=== PATIENT | female | born 2005 | race Two or more races ===

== ENCOUNTER 2024-07-31 05:11 | Inpatient (IN) | payer MEDICAID, SELFPAY ==
[2024-07-31] VITALS (18 sets, daily range): BP systolic 118–163; BP diastolic 71–100; PULSE 56–71; RESP 14–100; TEMP 36.4–37; O2SAT 97–98; BMI 29.4
[2024-07-31] MEDS: BETAMET ACET/BETAMET NA PH (Celestone) 6 MG/ML VIAL 12 MG IM (05:32)
[2024-07-31] MEDS: Ampicillin Inj 2,000 MG in SODIUM CHLORIDE 0.9% (POP) 100 ML 200 MG IV (05:36)
[2024-07-31] MEDS: RINGERS LACTATED 1000 ML 1,000 ML 100 ML IV (05:36)
[2024-07-31 05:44] LABS: Basophils % (Auto) 0 % (0-2.5); Eosinophils # (Auto) 0.1 Thou/mm3 (0.0-0.5); Eosinophils % (Auto) 1 % (0-10); Hematocrit 36.9 % (36.0-46.0); Hemoglobin 13.2 g/dL (12.0-16.0); Immature Granulocytes % (Auto) 1 % (0-0); Immature Granulocytes Auto 0.06 Thou/mm3 (0.00-0.00); Lymphocytes % (Auto) 37 % (10-50); Mean Corpuscular HGB Conc 35.8 g/dl (31.0-37.0); Mean Corpuscular Hemoglobin 29.9 pg (25.0-35.0); Mean Corpuscular Volume 84 fL (80-100); Monocytes # (Auto) 0.4 Thou/mm3 (0.0-0.8); Monocytes % (Auto) 5 % (0-12); Neutrophils # (Auto) 4.5 Thou/mm3 (1.8-7.7); Neutrophils % (Auto) 56 % (37-80); Nucleated Red Blood Cell % 0 /100 WBC (0); Platelet Count 260 Thou/mm3 (140-440); RDW Standard Deviation 39.3 fL (36.4-46.3); Red Blood Count 4.42 Miln/mm3 (4.00-5.20); White Blood Count 8.1 Thou/mm3 (4.5-11.0)
[2024-07-31 06:18] LABS: Syphilis Nonreactive (Nonreactive)
[2024-07-31] MEDS: METHYLERGONOVINE INJ 0.2 MG/ML VIAL IM (06:21)
[2024-07-31] MEDS: OXYTOCIN in NS 20 units 20 UNIT/1,000 ML BAG 125 UNIT IV (06:21)
[2024-07-31] MEDS: BENZO/LANO/ALOE (Dermoplast) 60 GM CAN 1 SPRAY TOP (06:21)
[2024-07-31] MEDS: LIDOCAINE HCL 1% 20 ML VIAL INFL (06:22)
[2024-07-31] MEDS: MINERAL OIL 30 ML UDC TOP (06:22)
[2024-07-31] MEDS: IBUPROFEN TAB 400 MG TABLET 800 MG PO (06:23)
--- NOTE | 2024-07-31 06:39 | ESHP_ITS ---
Documentation for date of: 07/31/24 OB Labor/Induct. HPI History of Present Illness : 3 Para: 3 Term pregnancies: 2 pregnancies: 0 Living children: 2 History of Abortions: Spontaneous and Elective: 0 History of Vaginal deliveries: 2 History of sections: No History of : No DUKE: 08/16/24 Gestational Age (weeks): 34 Gestational Age (days): 6 History of present illness: Patient presents for regular, painful ctx that started around 0100 and have gotten progressively more painful. No LOF. No vaginal bleeding. Normal movement. No fevers/chills. History of Present Adequate Care: Yes Narrative: Hx of 2 prior vaginal deliveries at term No records available to review today from Dr. Avelar' office, but patient states she established care with him at 12wk and has had good care with no complications Labs Labs: Positive: Rubella Titre, Negative: RPR, Hepatitis B, HIV, Chlamydia, Gonorrhea and Group Beta Strep and Unknown: Herpes Type 1, Herpes Type 2 and Covid-19 Review of Systems Review of Systems Narrative Review of Systems: Review of Systems Systems Reviewed: All systems reviewed, normal except as documented Constitutional Constitutional: Denies body ache(s), Denies chills, Denies fever(s) and Denies headache(s) ENT Ears, Nose, Mouth, and Throat: Denies headache(s) and Denies vertigo Cardiovascular Cardiovascular: Denies chest pain, Denies palpitations, Denies dyspnea and Denies syncope Respiratory Respiratory: Denies cough, Denies dyspnea Gastrointestinal Gastrointestinal: Denies nausea and Denies vomiting Neurologic Neurologic: Denies convulsions, Denies headache(s), Denies other visual disturbances, Denies syncope and Denies vertigo Past Medical History Family History OTHER FAMILY HX: non-contributory Surgical History SURGICAL: Negative Section OTHER SURGICAL HX: denies Social History SOCIAL: , two children. No tobacco/ETOH/illicit drugs Past Medical History Comments PMH COMMENT: Benign PMHx Meds Home Medications and Allergies Allergies Allergy/AdvReac Type Severity Reaction Status Date / Time No Known Allergies Allergy Verified 09/16/23 10:19 OB Exam Physical Exam Vital signs: Temp Pulse Resp BP 98.6 F 57 L 18 131/86 H 07/31/24 05:16 07/31/24 06:25 07/31/24 05:16 07/31/24 06:25 Narrative: General: well developed, well nourished, having painful contractions Cardiac: normal heart rate Lungs: breathing without distress Abdomen: soft, gravid, non-tender, no rebound or guarding Extremities: no pain with palpation of calves Detailed Labor and Delivery Exam Dilation (cm): 6 Effacement (%): 80 Cervix position: anterior station: -2 Consistency: soft Presentation: Vertex Membranes: intact monitor accelerations: 15x15 monitor decelerations: None alf variability: Moderate (11-25) Contraction frequency (min): q3-4min OB Results Labs 07/31/24 05:25 Labs: Short CBC 07/31/24 Range/Units 05:25 WBC 8.1 (4.5-11.0) Thou/mm3 Hgb 13.2 (12.0-16.0) g/dL Hct 36.9 (36.0-46.0) % Plt Count 260 (140-440) Thou/mm3 OB Assessment & Plan Assessment and Plan (1) Active labor: Status: Acute Assessment and plan: Radha is a 19yo with SIUP at 34&6wk per patient presenting in active labor. Regular/painful contractions, SCE: 6/80/-2. Vitals wnl, benign exam. Reassuring assessment. PMhx/ complicated by: No records available to review today (other than labs from [facility]) from Dr. Avelar' office, but patient states she established care with him at 12wk and has had good care with no complications Plan: -Admit to L&D -Establish IV, routine labs -CEFM -Clear liquid diet -Hadoop Software Engineer/consent re: -GBS status: unknown. Ampicillin per protocol -Betamethasone 12mg IM x1 -Anticipate -Safe to proceed Amirah Munoz MD
--- NOTE | 2024-07-31 06:39 | OBDSUM_ITS ---
Data ([facility]) Data Hx Section: No : 3 Term: 2 : 0 Livin Abortions: Spontaneous & Theraputic: 0 Delivery Data ([facility]) Labor Data Initiation of labor: Spontaneous Induction/Augmentation Agent: None ROM date: 07/31/24 ROM time: 05:54 Amniotic membrane rupture type: Artificial Amniotic fluid description: Clear Delivery Data Onset of labor date: 07/31/24 Onset of labor time: 04:30 Complete dilation date: 07/31/24 Complete dilation time: 05:53 delivery date: 07/31/24 delivery time: 05:54 Placenta delivery date: 07/31/24 Placenta delivery time: 05:58 Stage 1 total time: Labor - Stage 1 Duration 1 hours and 23 minutes Delivered by: Amirah Munoz Delivery nurse: gagan Gonzalez nurse: Sarah Outpatient Coding Specialist at delivery: Yes (Dr. De La Garza) Delivery Method Delivery method: Normal Vaginal Delivery Presentation: Vertex Anesthesia Type Anesthesia Type: None Placenta Placenta delivery description: Spontaneous Cord blood sent to lab: Yes cord blood collection: Cord Blood Type Episiotomy Episiotomy description: None EBL Estimated blood loss (ml): 300 Umbilical Cord cord description: 3 Vessels Additional Procedures Radha is a 19yo [id number] s/p uncomplicated at 34(?)wk after presenting in active labor, delivering at 0554 on 07/31/2024. On presentation, SCE was 6cm. She progressed very rapidly to C/C/+1 at which point she began pushing. Forebag was ruptured at +2 station. With good maternal pushing efforts, 's head delivered OA and restituted RU. Left anterior shoulder delivered easily followed by posterior shoulder and corpus. had lusty spontaneous cry and was vigorous. Apgars 8/9. Dr. Rai present for delivery. placed on maternal abdomen where nose/mouth were suctioned and infant dried/stimulated. After approximately 1 minute, cord was clamped x2 and cut by me. Cord blood collected for typing. With fundal massage and cord traction, placenta delivered spontaneously and intact with 3 vessel centrally inserted cord. Bimanual massage performed and IV pitocin given per protocol with fundus then firm at u-2cm and hemostasis noted. Inspection of perineum and vagina revealed a 2nd degree midline perineal laceration which was repaired in routine fashion with 3-0 vicryl, after anesthetizing with 1% lidocaine- total reapproximation and hemostasis achieved. Continuous trickle of blood began, so sweep just within cervix/BELA performed which retrieved a small amount of clot. 0.2mg IM methergine given and bimanual massage performed with observed hemostasis after. All counts correct x2. Mom was doing well when I left the room. Infant taken to NICU for period of observation. Amirah Munoz MD Data ([facility]) Data order: 1 's gender: Male Identification band number: [id number] weight (gms): 3203.496 g Weight (pounds): 7 lbs and 1.0 ozs [place] length: 50.8 cm 1 minute: 8 5 minutes: 9
[2024-07-31 07:38] LABS: Amphetamine/Metham Scrn,Ur OB Negative (Negative); Benzoylecgonine Screen, Ur OB Negative (Negative); Opiate Screen,Urine OB Negative (Negative); THC Screen,Urine OB Negative (Negative)
[2024-07-31] MEDS: DOCUSATE SOD 100 MG CAPSULE PO ×2 (08:48→20:14)
[2024-07-31 12:49] LABS: Basophils % (Auto) 0 % (0-2.5); Eosinophils % (Auto) 0 % (0-10); Hematocrit 34.6 % (36.0-46.0); Hemoglobin 12.5 g/dL (12.0-16.0); Immature Granulocytes % (Auto) 1 % (0-0); Immature Granulocytes Auto 0.09 Thou/mm3 (0.00-0.00); Lymphocytes # (Auto) 1.5 Thou/mm3 (1.0-4.8); Lymphocytes % (Auto) 11 % (10-50); Mean Corpuscular HGB Conc 36.1 g/dl (31.0-37.0); Mean Corpuscular Hemoglobin 29.9 pg (25.0-35.0); Mean Corpuscular Volume 83 fL (80-100); Monocytes # (Auto) 0.2 Thou/mm3 (0.0-0.8); Monocytes % (Auto) 1 % (0-12); Neutrophils # (Auto) 12.6 Thou/mm3 (1.8-7.7); Neutrophils % (Auto) 87 % (37-80); Nucleated Red Blood Cell % 0 /100 WBC (0); Platelet Count 254 Thou/mm3 (140-440); RDW Standard Deviation 39.1 fL (36.4-46.3); Red Blood Count 4.18 Miln/mm3 (4.00-5.20); White Blood Count 14.4 Thou/mm3 (4.5-11.0)
[2024-08-01 04:00] VITALS: BP 112/68; PULSE 57; RESP 17; TEMP 36.4; O2SAT 97
--- NOTE | 2024-08-01 07:38 | ESDS_ITS ---
DS: Providers Provider Date of admission: 07/31/24 05:24 Primary care physician: Physician No Primary/Family Admitting Provider: Amirah Munoz MD Attending Provider on Admission: Amirah Munoz MD Consults: 07/31/24 06:38 Referral Routine Comment: Attending Provider on DC: Amirah Munoz MD Discharging Provider: Amirah Munoz MD DS: Diagnosis Discharge Diagnosis (1) Vaginal delivery: Status: Acute Problem List Completed Was Problem List Reviewed/Reconciled?: Yes Summary/Hosp Course Brief History: Patient presents for regular, painful ctx that started around 0100 and have gotten progressively more painful. No LOF. No vaginal bleeding. Normal movement. No fevers/chills. Radha is a 19yo E1hhhV3 s/p uncomplicated at 34(?)wk ( appeared term) after presenting in active labor, delivering at 0554 on 08/01/24. She has had an uncomplicated course, meeting all milestones and feels ready for discharge home. She is ambulating without lightheadedness, tolerating regular diet no n/v, spontaneously voiding without issue. She has no chest pain or shortness of breath. No fevers or chills. Minimal, appropriate discomfort. Vitals normal, benign exam. Hemodynamically stable with no evidence of infection. PP Hgb 12.5 from 13.2. Peripartum Data Delivery Method: Normal Vaginal Delivery Episiotomy Description: None Status at Discharge Functional status at discharge: independent ambulation Overall status at discharge: patient is back to baseline Time Spent with Patient Time attestation: Total time spent providing and/or coordinating discharge services: Exam Vital Signs Temp Pulse Resp BP Pulse Ox O2 Del Method 97.6 F 57 L 17 112/68 97 Room Air 08/01/24 04:00 08/01/24 04:00 08/01/24 04:00 08/01/24 04:00 08/01/24 04:00 08/01/24 04:00 Narrative Exam General: well developed, well nourished, no acute distress, conversant Cardiac: normal heart rate Lungs: breathing without distress Abdomen: soft, post-gravid, non-tender, no rebound or guarding, Fundus firm at u-3cm. Extremities: no pain with palpation of calves, no edema of BLE Discharge Plan Plan Patient Disposition: HOME (Self Care) Patient condition on transfer: Stable Prescriptions/Referrals Prescriptions/Med Rec: New docusate sodium 100 mg Capsule 100 mg PO BID 10 Days Qty: 20 0RF ibuprofen 800 mg tablet 800 mg PO Q8H PRN (Reason: See Comments) 10 Days Qty: 20 0RF Referrals: No Primary/Family,Physician [Primary Care Provider] - Patient/Caregiver Discharge Instructions Discharge Activity: activity as tolerated and other Other Discharge Activity Instructions:: vaginal rest and no heavy lifting more than 10 pounds for 6 weeks Other Discharge Diet Instructions: regular Education Materials: After a Vaginal Print Language: Upper Sorbian Activity Restrictions/Additional Instructions: follow up with Dr. Avelar in 2 to 4 weeks for visit, call his office to schedule appointment Stand Alone Forms: [place] Award Info., Patient Portal Info Letter Discharge Order Discharge Orders: Discharge (Routine); Ordered 08/01/24 Ordered By: Amirah Munoz Planned Discharge Date 08/01/24
[2024-08-01 08:15] VITALS: BP 112/73; RESP 14; TEMP 36.7; O2SAT 98
--- NOTE | 2024-08-01 14:25 | PC.SS ---
GENERAL TECHNICIAN received referral contacted bedside nurse to obtain basis of referral. GENERAL TECHNICIAN informed that referral based on pre-term status, but that was full term. Follow up not required.
== END 2024-08-01 12:20 | disposition home or self-care (01) | DRG 560 ==
LOC: S4SX 06:50 → S4NX 07:52
PROVIDERS: Admitting Provider Obstetrics & Gynecology; Visit Provider Obstetrics & Gynecology
DX: O70.1 Second degree perineal laceration during delivery (principal); Z37.0 Single live birth; Z3A.34 34 weeks gestation of pregnancy
CPT/HCPCS: 36415; 59409; 80307; 85025; 86780; 86850; 86900; 86901; 94762; J0290; J0702; J2210; J2590; J3490; J7120; A9270